=== PATIENT | female | born 1950 | race Caucasian/White ===

== ENCOUNTER 2024-03-05 13:38 | Outpatient (CLI) | payer MEDICARE, MEDICAID | END 2024-03-05 23:59 | disposition home or self-care (01) | LOC: MRI 13:38 | PROVIDERS: ATTEND Orthopaedic Surgery | DX: M19.012 Primary osteoarthritis, left shoulder (principal); M25.412 Effusion, left shoulder; M25.812 Other specified joint disorders, left shoulder; M75.22 Bicipital tendinitis, left shoulder; M25.512 Pain in left shoulder | CPT/HCPCS: 73221 ==